=== PATIENT | female | born 2000 | race Caucasian/White ===

== ENCOUNTER 2024-10-26 14:03 | Outpatient (REF) | payer OTHER, SELFPAY ==
--- OUTSIDE RECORDS SUMMARY | 2024-10-26 15:05 | XMS_ITS | Clinical Summary ---
Author Organization Patient Business [facility] Address [address] [place] [address] Care Team Providers Care Spout Liner Helper Name Role Phone Geena Lovell MD Primary Care Provider Allergies No known active allergies Medications No known medications Active Problems No known active problems Encounters Date Type Department Care Team Description 08/18/2024 Telephone Obstetrics and Gynecology - [place] [address] [place] [address] Isacc Snyder CNM Results 08/06/2024 Telephone Obstetrics and Gynecology - [place] [address] [place] [address] Elliott Garcia CNM Results 08/05/2024 1:15 PM EDT Office Visit Obstetrics and Gynecology - [address] [phone] Elliott Garcia CNM Worried well (Primary Dx); Vaginal odor; Screen for STD (sexually transmitted disease) from Last 3 Months Surgical History Surgery Date Site/Laterality Comments OTHER SURGICAL HISTORY PROCEDURE: DENIES PREVIOUS SURGERY Medical History Medical History Date Comments Type O blood, Rh positive 06/2019 DX:Typ e O blood, Rh positive Family History Relation Name Status Comments Mother Alive Social History Tobacco Use Types Packs/Day Years Used Date Smoking Tobacco: Never Smokeless Tobacco: Never Alcohol Use Standard Drinks/Week Comments Yes 0 (1 standard drink = 0.6 oz pur e alcohol) Comments No Sex and Gender Information Value Date Recorded Sex Assigned at Not on file Legal Sex Female 11:37 AM EDT Gender Identity Not on file Sexual Orientation Not on file Obstetrics History Last Filed Vital Signs Vital Sign Reading Time Taken Comments Blood Pressure 126/77 08/05/2024 1:12 PM EDT Pulse 90 08/05/2024 1:12 PM EDT Temperature - - Respiratory Rate - - Oxygen Saturation - - Inhaled Oxygen Concentration - - Weight 71.3 kg (157 lb 3.2 oz) 08/05/2024 1:12 P M EDT Height 149.9 cm (4' 11 ) 03/22/2022 3:18 PM EST Body Mass Index 31.75 03/22/2022 3:18 PM EST Plan of Treatment Health Maintenance Due Date Last Done Comments HPV Vaccines (1 - 3-dose series) 2015 Hepatitis B Vaccines (1 of 3 - 19+ 3-dose series) 2019 HIV Screening 08/16/2019 Hepatitis C Screening 08/16/2019 Social Influencers of Health Screening 08/16/2019 Cervical Cancer Screening: P ap Smear 2021 COVID-19 Vaccine (1 - 2023-2 5 season) 2023 Depression Screening 03/17/2024 Influenza Vaccine (#1) 2024 12/22/2019 Gonorrhea/Chlamydia Screening 08/05/2025 08/05/2024 DTaP,Tdap,and Td Vaccines (2 - Td or Tdap) 11/10/2029 11/11/2019 HIB Vaccines Aged Out No longer eligi ble based on patient's age to complete this topic Hepatitis A Vaccines Aged Out No long er eligible based on patient's age to complete this topic IPV Vaccines Aged Out No longer eligi ble based on patient's age to complete this topic MMR Vaccines Aged Out No longer eligi ble based on patient's age to complete this topic Meningococcal ACWY Vaccine Aged Out N o longer eligible based on patient's age to complete this topic Meningococcal B Vaccine Aged Out No l onger eligible based on patient's age to complete this topic Pneumococcal Vaccine: Pediat rics (0 to 5 Years) and At-Risk Patients (6 to 49 Years) Aged Out No longer eligi ble based on patient's age to complete this topic RSV Immunization Patients Un je 20 months Aged Out No longer eligible b ased on patient's age to complete this topic Varicella Vaccines Aged Out No longer eligible based on patient's age to complete this topic Procedures Procedure Name Priority Date/Time Associated Diagnosis Comments TRICHOMONAS VAGINALIS ANTIGEN Routine 08/05/2024 1:42 PM EDT Vaginal odor Screen for STD (sexually transmitted disease) WET PREP, GENITAL Routine 08/05/2024 1:4 2 PM EDT Vaginal odor Screen for STD (sexually transmitted disease) CHLAMYDIA TRACHOMATIS AND NEISSERIA GONORRHOEAE PCR Routine 08/05/2024 1:42 PM EDT Screen for STD (sexually transmitted disease) from Last 3 Months Results * Trichomonas vaginalis antigen (08/05/2024 1:42 PM EDT) Pathologist [facility] Trichomonas vaginalis Negative Negative 08/05/2024 7:47 PM EDT [facility] Swab Vaginal structure / Unknown Non-blood Collection / Unknown 08/05/2024 1:42 PM EDT 08/05/2024 1:42 PM EDT Elliott GORDON LAB MICROBIOLOGY - GENERAL ORD ERABLES Final Result [facility] [address] [place] [address], * Chlamydia trachomatis and Neisseria gonorrhoeae molecular study (08/05/2024 1:42 PM EDT) [facility] Neisseria gonorrhoeae PCR Negative Negative LAB MOLECULAR DIAGNOSTICS METHOD 08/06/2024 9:45 AM EDT [facility] Chlamydia trachomatis PCR Negative Negative LAB MOLECULAR DIAGNOSTICS METHOD 08/06/2024 9:45 AM EDT [facility] Swab Cervix uteri structure / Unknown Non-blood Collection / Unknown 08/05/2024 1:42 PM EDT 08/05/2024 1:42 PM EDT us Elliott Garcia CNM LAB MICROBIOLOGY - GENERAL ORD ERABLES Final Result [facility] [address] [place] [address], [place] [phone] * (ABNORMAL) Wet prep, genital (08/05/2024 1:42 PM EDT) Clue Cells, Wet Prep Positive(A) Negative 08/05/2024 7:09 PM EDT [facility] Yeast, Wet Prep Negative Negative 08/05/2024 7:09 PM EDT [facility] Trichomonas, Wet Prep Indeterminate Negative 08/05/2024 7:09 PM EDT [facility] Comment:Refer to Trichomonas antigen. Swab Vaginal structure / Unknown Non-blood Collection / Unknown 08/05/2024 1:42 PM EDT 08/05/2024 1:42 PM EDT us Elliott GORDON LAB MICROBIOLOGY - GENERAL ORD ERABLES Final Result [facility] [address] [place] [address], [place] [phone] from Last 3 Months Insurance [facility] [employer] Care Teams Spout Liner Helper Relationship Specialty Start Date End Date Geena Lovell MD [address] [place] [address] Dr Isi [facility] MARQUEZ Savage PCP - General Pediatrics 06/05/17
--- OUTSIDE RECORDS SUMMARY | 2024-10-26 15:05 | XMS_ITS | Encounter Summary ---
Author Organization [employer] Address [address] [place] [address] Care Team Providers Care Data Network Architect Name Role Phone [facility] Primary Care Provider [phone] Reason for Visit * Reason Onset Date Comments Tspot 10/26/2024 Encounter Details Date Type Department Care Team ([facility] st Contact Info) Description 10/26/2024 Telephone [facility] MEDICINE [address] [place], [place] [phone] [facility] [address] [place] [address] Tspot Social History Tobacco Use Types Packs/Day Years Used Date Smoking Tobacco: Never Smokeless Tobacco: Never Depression Answer Date Recorded Patient Health Questionnaire-9 Score 0 09/13/2024 Patient Health Questionnaire-9 Score 0 09/13/2024 Last PHQ-9: Questionnaire Data Not on file 0 09/13/2024 Housing Stability Answer Date Recorded What is your housing situation today? I have alesia de la torre 09/13/[address] you li ve. Do you have problems with any of the following? None of the above 09/13/2024 Food Insecurity Answer Date Recorded Within the past 12 months, y ou worried that your food would run out before you got money to buy more: Never True 09/13/2024 Within the past 12 months,th e food you bought just didn't last and you didn't have enough money to get more: Never True Transportation Answer Date Recorded In the past 12 months, has l ack of transportation kept you from medical appts, meetings, work or from getting things needed for daily living? No 09/13/2024 Utilities Answer Date Recorded In the past 12 months, has t he electric, gas, oil or water company threatened to shut off services in your home? No 09/13/2024 Depression Answer Date Recorded Patient Health Questionnaire-2 Score 0 09/13/2024 Internet Access Answer Date Recorded Internet Access Q1 Yes 09/13/2024 Internet Access Q2 Not on file 09/13/2024 Comments Unknown Sex and Gender Information Value Date Recorded Sex Assigned at Female 01/14/2022 10:17 AM EDT Legal Sex Female 10:17 AM EDT Gender Identity Female 01/14/2022 10:17 AM EDT Sexual Orientation Straight 01/14/2022 10 :17 AM EDT documented as of this encounter Miscellaneous Notes * Telephone Encounter - Vicki Wakefield RN - 10/26/2024 2:03 PM EDT Patient presented to red team FD requesting an order for a Tspot for work purposes. Patient denies previous positive tuberculosis screen. Patient advised order is placed and patient can go to the labto complete BW at her convenience. Patient to f/u PRN. documented in this encounter Plan of Treatment Scheduled Orders Name Type Priority Associated Diagnoses Orde r Schedule T-SPOT .TB Lab Routine Encounter for screening for respiratory tuberculosis Expected: 10/26/2024 (Approximate), Expires: 10/26/2025 documented as of this encounter Visit Diagnoses Diagnosis Encounter for screening for respiratory tuberculosis documented in this encounter Additional Health Concerns Assessment Noted Time PHQ-9 Depression Total Score: 0 09/14/19 25 9:36 AM EDT documented as of this encounter Care Teams Data Network Architect Relationship Specialty Start Date End Date Keke Perry FNP [address] [place] [id number] PCP - General Family Medicine 08/22/21 documented as of this encounter
[2024-10-26 18:12] LABS: Cholesterol 179 mg/dL (<200); HDL Cholesterol 74 mg/dL (>40); Triglycerides 61 mg/dL (<150)
[2024-10-27 03:50] LABS: Syphilis Screen Nonreactive (Nonreactive)
[2024-10-27 04:15] LABS: HBS Num1 2.70 mIU/mL (0-7.99); HBc Num1 0.09 S/CO (0.00-0.79); HBsAGNum1 0.39 S/CO (0.00-0.99); HIV Num 1 0.06 S/CO (0.00-0.99); Hepatitis A Antibody IgM 0.17 Index (0-0.79); Hepatitis B Surface Antigen Negative (Negative); ~HepC Num1 0.11 S/CO (0.00-0.79); ~Hepatitis A Antibody IgM Nonreactive (Nonreactive); ~Hepatitis B Surface Antibody NONREACTIVE (Nonreactive); ~Hepatitis C Antibody Nonreactive (Nonreactive)
[2024-10-29 09:08] LABS: TS Negative Control Passed; TS Panel A 0; TS Panel B 0; TS Positive Control Passed; TSpotTB Negative (Negative)
== END 2024-10-26 14:04 | disposition home or self-care (01) ==
LOC: HO.HHCL 14:03
PROVIDERS: PCP Registered Nurse; Visit Provider Registered Nurse
DX: Z00.00 Encounter for general adult medical examination without abnormal findings (principal); Z11.1 Encounter for screening for respiratory tuberculosis; Z11.59 Encounter for screening for other viral diseases; Z11.3 Encounter for screening for infections with a predominantly sexual mode of transmission; Z11.4 Encounter for screening for human immunodeficiency virus [HIV]
CPT/HCPCS: 36415; 80061; 86481; 86704; 86706; 86709; 86780; 86803; 87340; 87389